=== PATIENT | male | born 1940 | race Caucasian/White ===

== ENCOUNTER → 2018-05-04 | Outpatient (CLI) | payer OTHER | END | disposition home or self-care (01) | LOC: NUC 10:00 | DX: M47.892 Other spondylosis, cervical region (principal); M19.042 Primary osteoarthritis, left hand; M19.041 Primary osteoarthritis, right hand; M17.12 Unilateral primary osteoarthritis, left knee; R97.20 Elevated prostate specific antigen [PSA] | CPT/HCPCS: 78306; A9503 ==